=== PATIENT | female | born 1980 | race Caucasian/White ===

== ENCOUNTER 2017-08-11 17:53 | Emergency (ER) | payer OTHER ==
[~2017-08-11] VITALS: Ht 157.5 cm; Wt 75.3 kg
[~2017-08-11 17:53] MED LIST: ACCUNEB SO1.25 MG/1 INH; ACETAMINOPHEN-1 EAC1 PO; ADVAIR HFA115 MCG/21 INH; ALBUTEROL S5 MG/1 ML IH; ALBUTEROL2.5 MG/0.5 INH; AMITRIPTYLINE H50 M2; AMITRIPTYLINE H50 M4 PO; AMOXICILLIN875 MG PO; ARTIFICIAL TEAR15 M3 OPHTHALMIC; ATIVAN1 MG PO; AZITHROMYCIN 2250 MG PO; BACTRIM DS TAB1 EACH PO; BENADRYL25 MG PO; CEFDINIR300 MG PO; CLONAZEPAM 1 MG1 M1; CLONAZEPAM 1 MG1 M1 PO; COLACE100 MG PO; CYMBALTA60 MG PO; DARVOCET-N 1001 EACH PO; DEPAKOTE ER500 MG PO; DEPAKOTE500 MG PO; DILANTIN30 MG PO; DUONEB 2.5-0.5 M3 ML INH; FLEXERIL; FLEXERIL PO; GEODON80 MG; HALDOL 0.5 MG0.5 MG PO; HYDROCODON-ACE1 EAC5; IBUPROFEN 800800 M1 PO; IBUPROFEN 800800 MG PO; LEVAQUIN 500 M500 MG PO; LEVOTHYROXIN0.125 M1 PO; LEVOTHYROXINE0.05 MG; LEVOTHYROXINE0.05 MG PO; LEXAPRO 10 MG T10 MG PO; MEDROLDOSEPACK PO; MIRALAX17 GM PO; NAPROSYN500 MG PO; NORCO 5-325 TA1 EACH PO; OMEPRAZOLE 20 M20 MG PO; PERCOCET 10-321 EACH PO; PERCOCET 5-3251 EACH PO; PERCOCET PO; PREDNISONE 10 M10 M1; PREDNISONE 10 M10 MG PO; PREDNISONE 20 M20 M1 PO; PROAIR HFA8.5 GM IH; PROVENTIL HFA6.7 G1 INH; PROZAC 20 MG20 M1; ROBAXIN 750 MG750 M1 PO; ROBAXIN500 MG PO; TESSALON PERLE100 MG; TRAMADOL 50 MG50 MG PO; TRIAMCINOLONE 080 G3 TOP; VALIUM10 MG; VALIUM5 MG PO; VENTOLIN HFA 1818 GM INH; VENTOLIN HFA INH8 GM IH; VISTARIL 25 MG25 M1 PO; VITAMIN D 5050000 I1 PO; XANAX 0.5 MG0.5 MG PO; XANAX XR1 MG PO; XOPENEX HFA15 GM IH; ZOFRAN4 MG PO; ZPAK PO; ZYRTEC10 MG PO
[2017-08-11] MEDS ORDERED: VIMPAT100 MG PO (18:15)
[2017-08-11] MEDS ORDERED: CLEOCIN HCL150 MG PO (18:15)
[2017-08-11] MEDS ORDERED: STOOL SOFTENER100 MG PO (18:16)
[2017-08-11] MEDS ORDERED: MULTIVITAMINS1 EAC7 PO (18:16)
[2017-08-11] MEDS ORDERED: XANAX1 MG PO (18:16)
[2017-08-11 19:35] VITALS: BP 94/56
== END 2017-08-11 19:38 | disposition home or self-care (01) ==
LOC: M.ERS 17:53
DX: G89.18 Other acute postprocedural pain (principal); Z98.890 Other specified postprocedural states; F41.9 Anxiety disorder, unspecified; F43.10 Post-traumatic stress disorder, unspecified; F42.9 Obsessive-compulsive disorder, unspecified; Z88.8 Allergy status to other drugs, medicaments and biological substances; Z88.2 Allergy status to sulfonamides

== ENCOUNTER 2017-08-30 21:02 | Emergency (ER) | payer OTHER ==
[~2017-08-30] VITALS: Ht 157.5 cm; Wt 73.5 kg
[~2017-08-30 21:02] MED LIST changes: +CLEOCIN HCL150 MG PO; +MULTIVITAMINS1 EAC7 PO; +STOOL SOFTENER100 MG PO; +VIMPAT100 MG PO; +XANAX1 MG PO
[2017-08-30] MEDS ORDERED: FISH OIL 1,001000 M2 PO (21:09)
[2017-08-30] MEDS ORDERED: SOMA350 MG PO (21:09)
[2017-08-30] MEDS ORDERED: VITAMIN D1000 UNI1 PO (21:09)
[2017-08-30] MEDS ORDERED: VISTARIL 25 MG25 M1 PO (21:10)
[2017-08-30 21:57] VITALS: BP 111/64
== END 2017-08-30 21:57 | disposition home or self-care (01) ==
LOC: M.ERS 21:02
DX: M54.5 Low back pain (principal); F43.10 Post-traumatic stress disorder, unspecified; F41.9 Anxiety disorder, unspecified; Z85.3 Personal history of malignant neoplasm of breast; Z88.2 Allergy status to sulfonamides; Z88.1 Allergy status to other antibiotic agents; Z88.8 Allergy status to other drugs, medicaments and biological substances

== ENCOUNTER 2017-09-10 19:55 | Emergency (ER) | payer OTHER ==
[~2017-09-10] VITALS: Ht 157.5 cm; Wt 72.6 kg
[~2017-09-10 19:55] MED LIST changes: +FISH OIL 1,001000 M2 PO; +SOMA350 MG PO; +VITAMIN D1000 UNI1 PO
[2017-09-10] MEDS ORDERED: ZOFRAN ODT4 MG DISSOLVE (20:06)
[2017-09-10 20:26] LABS: ABSOLUTE EOSINOPHILS 0.4 thou/uL (0.0-0.7); ABSOLUTE LYMPHOCYTES 2.9 thou/uL (0.8-5.3); ABSOLUTE MONOCYTES 0.6 thou/uL (0.0-1.2); ABSOLUTE NEUTROPHILS 4.3 thou/uL (1.6-8.1); BASOPHILS 0.6 %; EOSINOPHILS 4.4 %; HEMATOCRIT 38.3 % (37.0-47.0); HEMOGLOBIN 12.8 gm/dL (12.0-15.0); LYMPHOCYTES 35.4 %; MCH 31.3 pg (26.0-34.0); MCHC 33.4 g/dL (28.0-37.0); MCV 93.8 fL (80.0-100.0); MONOCYTES 7.2 %; MPV 8.7 fl. (7.2-11.1); NUCLEATED RBCS 0 /100WBC; PLATELET COUNT* 273 thou/uL (150-400); POLYS 52.4 %; RBC 4.08 mil/uL (4.20-5.00); RDW-CV 15.5 % (10.5-14.5); WBC 8.2 thou/uL (4.0-11.0)
[2017-09-10 20:37] LABS: URINE BILIRUBIN NEGATIVE (Negative); URINE BLOOD NEGATIVE (Negative); URINE CLARITY CLEAR; URINE COLOR YELLOW; URINE GLUCOSE-RANDOM NEGATIVE (Negative); URINE KETONES NEGATIVE (Negative); URINE LEUKOCYTES-REFLEX NEGATIVE (Negative); URINE NITRITE-REFLEX NEGATIVE (Negative); URINE PROTEIN NEGATIVE (Negative); URINE SPECIFIC GRAVITY 1.015 (1.005-1.030); URINE UROBILINOGEN 0.2 E.U./dl (0.2-1.0)
[2017-09-10 20:38] LABS: CALCIUM 8.4 mg/dL (8.5-10.1); CREATININE 0.7 mg/dL (0.6-1.3); POTASSIUM 3.9 mmol/L (3.5-5.1)
[2017-09-10 20:43] LABS: TOTAL BILIRUBIN 0.1 mg/dL (<0.1-1.0); TOTAL PROTEIN 6.2 g/dL (6.4-8.2)
[2017-09-10] MEDS ORDERED: ZOFRAN ODT4 MG PO (20:55)
[2017-09-10] MEDS ORDERED: ACETAMINOPHEN-1 EAC1 PO (20:55)
[2017-09-10] MEDS ORDERED: LOPERAMIDE 2 MG2 M1 PO (20:55)
[2017-09-10 21:46] VITALS: BP 92/54
== END 2017-09-10 21:48 | disposition home or self-care (01) ==
LOC: M.ERS 19:55
PROVIDERS: Physician Assistant
DX: R11.2 Nausea with vomiting, unspecified (principal); R19.7 Diarrhea, unspecified; F41.9 Anxiety disorder, unspecified; F43.10 Post-traumatic stress disorder, unspecified; F42.9 Obsessive-compulsive disorder, unspecified; Z88.8 Allergy status to other drugs, medicaments and biological substances; Z98.890 Other specified postprocedural states; Z85.3 Personal history of malignant neoplasm of breast; Z88.1 Allergy status to other antibiotic agents; Z88.2 Allergy status to sulfonamides; Z88.6 Allergy status to analgesic agent

== ENCOUNTER 2017-09-14 22:17 | Inpatient (IN) | payer OTHER ==
[~2017-09-14] VITALS: Ht 157.5 cm; Wt 70.3 kg
--- NOTE | ~2017-09-14 | EKG ---
[place] [address] ELECTROCARDIOGRAM REPORT Name: YOLI OAKLEY Room: [address] ADM IN .R.#: [id number] Admission: 09/15/17 Attend Phys: Salomon Cohn Discharge: Date of : 84 Report #: [id number] THIS REPORT FOR: //name// [facility] Test Date: 2017-09-16 Test Time: 08:43:12 Pat Name: YOLI TOMLINEY Department: Room: [address] Gender: F Warper Tender: ALBER : 1980 Requested By: Floyd Tate Order Number: [id number] Reading MD: Measurements Intervals [place] Rate: 52 P: 40 AR: 145 QRS: 19 QRSD: 126 T: 17 QT: 453 QTc: 422 Interpretive Statements Sinus rhythm Nonspecific intraventricular conduction delay No previous ECG available for comparison [email or web address] By: [id number] Epiphany Epiphany, /EPI
--- NOTE | ~2017-09-14 | PROC ---
[address] [address] PROCEDURE REPORT Name: YOLI OAKLEY Room: [address]#: [id number] Admission: 09/15/17 Attend Phys: Salomon Cohn Discharge: 09/19/17 Date of : 84 Report #: [id number] THIS REPORT FOR: //name// For GI report, please see the Provation report in Perceptive 7 content. By: 0945Medical Records Staff BENJAMIN /BERTA
[~2017-09-14 22:17] MED LIST changes: +LOPERAMIDE 2 MG2 M1 PO; +ZOFRAN ODT4 MG DISSOLVE; +ZOFRAN ODT4 MG PO
[2017-09-14 22:24] VITALS: BP 102/70
[2017-09-14 23:15] LABS: ABSOLUTE BASOPHILS 0.1 thou/uL (0.0-0.2); ABSOLUTE EOSINOPHILS 0.4 thou/uL (0.0-0.7); ABSOLUTE LYMPHOCYTES 3.3 thou/uL (0.8-5.3); ABSOLUTE MONOCYTES 0.8 thou/uL (0.0-1.2); ABSOLUTE NEUTROPHILS 4.8 thou/uL (1.6-8.1); BASOPHILS 0.7 %; HEMATOCRIT 34.5 % (37.0-47.0); HEMOGLOBIN 11.6 gm/dL (12.0-15.0); LYMPHOCYTES 35.4 %; MCH 31.3 pg (26.0-34.0); MCHC 33.5 g/dL (28.0-37.0); MCV 93.2 fL (80.0-100.0); MONOCYTES 8.4 %; MPV 8.9 fl. (7.2-11.1); NUCLEATED RBCS 0 /100WBC; PLATELET COUNT* 237 thou/uL (150-400); POLYS 51.5 %; RDW-CV 15.4 % (10.5-14.5); WBC 9.4 thou/uL (4.0-11.0)
[2017-09-14 23:29] LABS: URINE BILIRUBIN NEGATIVE (Negative); URINE BLOOD NEGATIVE (Negative); URINE CLARITY CLEAR; URINE COLOR YELLOW; URINE GLUCOSE-RANDOM NEGATIVE (Negative); URINE KETONES NEGATIVE (Negative); URINE LEUKOCYTES-REFLEX NEGATIVE (Negative); URINE NITRITE-REFLEX NEGATIVE (Negative); URINE PROTEIN NEGATIVE (Negative); URINE SPECIFIC GRAVITY 1.025 (1.005-1.030); URINE UROBILINOGEN 0.2 E.U./dl (0.2-1.0)
[2017-09-14 23:37] LABS: AMP/METHAMP Negative (Negative); BARBITURATES POSITIVE (Negative); BENZODIAZEPINES POSITIVE (Negative); COCAINE Negative (Negative); METHADONE Negative (Negative); OPIATES Negative (Negative); PCP Negative (Negative); THC POSITIVE (Negative)
[2017-09-14 23:56] LABS: CALCIUM 8.1 mg/dL (8.5-10.1); CREATININE 0.8 mg/dL (0.6-1.3); POTASSIUM 4.1 mmol/L (3.5-5.1)
[2017-09-15 00:01] LABS: ALBUMIN 2.7 g/dL (3.4-5.0); TOTAL BILIRUBIN 0.1 mg/dL (<0.1-1.0); TOTAL PROTEIN 5.5 g/dL (6.4-8.2)
[2017-09-15 04:04] VITALS: BP 105/59
[2017-09-15 04:42] VITALS: BP 89/47
--- NOTE | 2017-09-15 05:27 | NUR ---
PATIENT ARRIVED FROM ER ALERT AND ORIENTED. ORIENTED TO ROOM AND BED CONTROLS. ASSESSMENT CHARTED. CALL LIGHT WITHIN REACH. NPO AT THIS TIME.
--- NOTE | 2017-09-15 06:05 | NUR ---
ALERT AND ORIENTED X4. UP AD LOURDES IN ROOM. IV PAIN AND NAUSEA MEDICATION GIVEN AND PATIENT NOW RESTING QUIETLY IN BED. REMAINS NPO AT THIS TIME. IVF INFUSING WITHOUT DIFFICULTY. CALL LIGHT WITHIN REACH.
[2017-09-15 08:00] VITALS: BP 91/46
--- NOTE | 2017-09-15 11:11 | NUR ---
Pt is A&O. Resides at home with her son. Independent with ADLs, no DME. Supportive family that is available to assist as needed. No hx of HH or SNF. Goal is to return home at dc, no needs anticipated. Pt stated that she believes that she is suppose to have her gallbladder removed, hopefully today. Following for disposition.
[2017-09-15 16:03] VITALS: BP 101/61
--- NOTE | 2017-09-15 18:11 | NUR ---
PATIENT ALERT AND ORIENTED X 4. VITAL SIGNS STABLE ON ROOM AIR. AFEBRILE. PERRLA. UP AD LOURDES AND AMBULATING IN ROOM AND HALLWAY. IV PATENT WITH FLUIDS INFUSING. PAIN AND NAUSEA BEING MANAGED WITH IV MEDICATIONS. PATIENT REFUSES SCD'S. EDUCATED ON THE IMPORTANCE. TOLERATING CLEAR LIQUID DIET AT THIS TIME. NPO AFTER MIDNIGHT. SURGERY SCHEDULED FOR THE AM. HOURLY ROUNDS MAINTAINED THROUGHOUT THE SHIFT. CALL LIGHT WITHIN REACH. NURSING WILL CONTINUE TO MONITOR.
[2017-09-15 20:30] VITALS: BP 87/52
[2017-09-16] VITALS (9 sets, daily range): BP systolic 80–114; BP diastolic 32–65
--- NOTE | 2017-09-16 03:39 | NUR ---
ORDERED FLUID BOLUS COMPLETE. BLOOD PRESSURE CONTINUES TO BE LOW. CONTACTED PHYSICIAN. ORDERS TO HOLD PAIN MEDICATIONS UNTIL SYSTOLIC PRESSURE IS ABOVE 85.
--- NOTE | 2017-09-16 05:02 | NUR ---
PATIENT REMAINS ALERT AND ORIENTED X4 THROUGHOUT SHIFT. PHYSICIAN HAS BEEN CONTACTED FOR LOW BLOOD PRESSURE. ORDERS GIVEN. OXYGEN STABLE ON ROOM AIR. IV PATENT IN THE RIGHT HAND INFUSING AT 150 ML/HR. PAIN MANAGED WITH IV MEDICATION PER ORDERS. NAUSEA MANAGED WITH IV MEDICATIONS ORDERS. MAINTAINED NPO STATUS SINCE MIDNIGHT. IV ANTIBIOTICS GIVE PER ORDERS. VISITOR IN ROOM THROUGHOUT NIGHT. ORDERS GIVEN TO HOLD PAIN MEDICATION UNTIL SYSTOLIC PRESSURE ABOVE 85. PATIENT STATES HER BLOOD PRESSURE RUNS LOW DUE TO HISTORY OF SICK SINUS SYNDROME. TRANSFERS AD LOURDES TO THE RESTROOM. HOURLY ROUNDING COMPLETE. CALL LIGHT WITHIN REACH. NURSING WILL CONTINUE TO MONITOR.
--- NOTE | 2017-09-16 11:25 | NUR ---
0715-ASSUMED CARE OF PT, PT HAS HX OF SEIZURE DISORDER-PRECAUTIONS IN PLACE PT IN PAIN BUT HAS HAD LOW BP OVER PREVIOUS SHIFT, PHYSICIAN ORDER NOT TO PROVIDE PAIN MEDICATIONS IF SBP UNDER 85. PT C/O NAUSEA AT THIS TIME, WILL PROVIDE WITH ANTI-NAUSEA MEDICATIONS. 0820-SPOKE WITH DR RAMEY REGARDING CONCERNS ABOUT LOW BP PRIOR TO SURGERY AND PT HX OF SICK SINUS SYNDROME, WONDERING IF PT SHOULD BE ON TELEMETRY. 0853-PT LEFT UNIT FOR SURGERY AT THIS TIME. 1050-DR CORREA GAVE ORDER FOR 1L NS OVER 90 MINS AND THAT THE PT CAN HAVE FENTANYL LONG BP REMAIN STABLE. 1100-SPOKE WITH DR RIDER AND HE STATED THAT THE PT TOLERATED SURGERY WELL, DID NOT NEED ANY PRESSORS AND BP HAS STABILIZED AT THIS TIME.
[2017-09-17 02:18] VITALS: BP 101/63
[2017-09-17 04:29] VITALS: BP 92/51
--- NOTE | 2017-09-17 05:05 | NUR ---
PATIENT REMAINS ALERT AND ORIENTED X4 THROUGHOUT SHIFT. VITAL SIGNS STABLE ON ROOM AIR. IV PATENT IN THE RIGHT HAND INFUSING AT 150 ML/HR PER ORDERS. PAIN MANAGED WITH PO MEDICATION AND IV MEDICATION FOR BREAKTHROUGH PAIN. BLOOD PRESSURE CLOSELY MONITORED PRIOR TO GIVING PAIN MEDICATION. NAUSEA MANAGED WITH IV MEDICATION. TRANSFERS AD LOURDES IN ROOM AND IN HALLWAY. HAS BEEN WALKING AROUND UNIT FREQUENTLY. REQUESTED ABDOMINAL BINDER, PHYSICIAN CONTACTED AND ORDERS RECEIVED. VISITOR IN ROOM. PATIENT DECLINES WEARING SCD'S. REPOSITIONING SELF. HOURLY ROUNDING COMPLETE. CALL LIGHT WITHIN REACH. NURSING WILL CONTINUE TO MONITOR.
[2017-09-17 07:54] VITALS: BP 102/63
[2017-09-17] MEDS ORDERED: ZOFRAN ODT4 MG PO (07:54)
--- NOTE | 2017-09-17 09:45 | EKG ---
[place] [address] ELECTROCARDIOGRAM REPORT Name: YOLI OAKLEY Room: [address] ADM IN .R.#: [id number] Admission: 09/15/17 Attend Phys: Salomon Cohn Discharge: Date of : 84 Report #: [id number] THIS REPORT FOR: //name// [facility] Test Date: 2017-09-16 Test Time: 08:43:12 Pat Name: YOLI OAKLEY Department: Room: [address] Gender: F Carry All Driver: ALBER : 1980 Requested By: Reji Wenistein Order Number: [id number] MD: Pasha Alas Measurements Intervals [place] Rate: 52 P: 40 [place]: 145 QRS: 19 QRSD: 126 T: 17 QT: 453 QTc: 422 Interpretive Statements Sinus bradycardia Compared to ECG 03/27/2014 19:20:14 Sinus arrhythmia no longer present Electronically Signed On 09-17-2017 9:44:56 CDT by Pasha Alas [email or web address] <ELECTRONICALLY SIGNED> By: Pasha Alas MD, [facility] 09/17/17 0944 2 2 Pasha Alas MD, [facility] /EPI
[2017-09-17 15:48] VITALS: BP 93/57
--- NOTE | 2017-09-17 18:48 | NUR ---
0754-ASSUMED CARE OF PT. PT RESTING COMFORTABLY IN BED AT THIS TIME. 0650-PT NOT TOLERATING REGULAR OR CLEAR LIQUID DIET THIS SHIFT. PT EXPERIENCING NAUSEA WITH VOMITTING AND ANH VIERANG THIS SHIFT. PT NEEDING IV ZOFRAN AND IV FENTANYL THIS SHIFT FOR NAUSEA AND PAIN MANAGEMENT. TEAM AWARE. DR MOORE GAVE TELEPHONE ORDER AT 0930 FOR SECOND DOSE OF ZOFRAN IF NEEDED UP TO 8MG BUT STATED THAT NO PHENERGAN WAS TO BE USED. SPOKE WITH DR RAMEY REGARDING PT CONTINUED NAUSEA WHEN HE WAS ROUNDING AND HE STATED THAT IF SHE CONTINUED HAVING COMPLICATIONS THIS EVENING TO LET THE TEAM KNOW SO THAT THEY COULD START IV FLUIDS. NOTIFIED DR BRADSHAW REGARDING PT CONTINUED NAUSEA AND VOMITTING AT 1730 AND HE GAVE TELEPHONE ORDERS TO MAKE PT NPO AND START NS AT 100 AT THIS TIME. HE ALSO STATED TO DC ZOFRAN 4MG IV AND 4MG ZOFRAN SL AT THIS TIME AND CHANGE THE ORDER TO ZOFRAN 4-8MG IV Q4 AT THIS TIME. ORDERS PLACED. IV FLUIDS STARTED AND ANOTHER DOSE OF FENTANYL PROVIDED. PT RESTING AT THIS TIME.
[2017-09-17 19:45] VITALS: BP 90/52
[2017-09-18 04:02] VITALS: BP 98/64
--- NOTE | 2017-09-18 05:10 | NUR ---
PATIENT HAS REMAINED ALERT AND ORIENTED X 4 THROUGHOUT THE SHIFT. MIN NAUSEA AT SHIFT START THAT RESOLVED WITH A DOSE ZOFRAN. NO EMESIS. CONTINUES TO HAVE PAIN REQUIRING IV PAIN MEDICATION. ADDITIONAL ORDERS WERE RECEIVED AT HS WELL. PATIENT UP TO BR SBA, VOIDING ADEQUATELY. STATES HAS PASSED MINAMAL GAS. NPO STATUS MAINTAINED. IVF'S PER ORDERS. VITAL SIGNS STABLE. CONTINUE TO MONITOR.
[2017-09-18] MEDS ORDERED: PROMS25 WY RECTAL (07:37)
[2017-09-18 07:45] VITALS: BP 97/60
[2017-09-18 11:28] LABS: HEMATOCRIT 31.2 % (37.0-47.0); HEMOGLOBIN 10.5 gm/dL (12.0-15.0); MCHC 33.8 g/dL (28.0-37.0); MCV 94.6 fL (80.0-100.0); MPV 8.7 fl. (7.2-11.1); RBC 3.3 mil/uL (4.20-5.00); RDW-CV 14.8 % (10.5-14.5)
[2017-09-18 11:38] VITALS: BP 106/64
[2017-09-18 11:51] LABS: ALBUMIN 2.4 g/dL (3.4-5.0); CALCIUM 8.3 mg/dL (8.5-10.1); CREATININE 0.6 mg/dL (0.6-1.3); POTASSIUM 3.8 mmol/L (3.5-5.1); TOTAL BILIRUBIN 0.3 mg/dL (<0.1-1.0)
[2017-09-18 12:09] VITALS: BP 122/56
--- NOTE | 2017-09-18 14:00 | NUR ---
HAD EGD TODAY FOR CONTINUED NAUSEA/VOMITING POST LAP CAROLINE. IT SHOWED ESOPHAGITIS. WILL GO HOME AT DISCHARGE AND HAVE REPEAT EGD IN 2 MONTHS. ON CLEAR LIQUIDS TODAY. HOPES TO ADVANCE DIET TOMORROW AND DISCHARGE HOME WITH NO NEEDS.
[2017-09-18 15:28] VITALS: BP 110/58
--- NOTE | 2017-09-18 17:40 | NUR ---
ALERT AND ORIENTED X4. UP AD LOURDES IN ROOM. IV IS PATENT AND INFUSING. PAIN BEING MANAGED WITH PO AND IV PAIN MEDICATION. NAUSEA BEING MANAGED WITH IV AND PO NAUSEA MEDICATION. ON CLEAR LIQUID DIET AT THIS TIME, NOT TOLERATING IT WELL. EGD DONE TODAY, NEW ORDERS RECIEVED. PATIENT IS OKAY TO DC ONCE TOLERATING FULL LIQUID DIET, WHICH PATIENT IS NOT AT THIS TIME. VSS ON ROOM AIR. HOURLY ROUNDS HAVE BEEN MAINTAINED THROUGHOUT SHIFT. CALL LIGHT IS WITHIN REACH. NURSING WILL CONTINUE TO MONITOR.
[2017-09-18 20:00] VITALS: BP 96/43
[2017-09-19 04:00] VITALS: BP 85/49
[2017-09-19 04:50] VITALS: BP 95/52
--- NOTE | 2017-09-19 05:31 | NUR ---
PATIENT HAS REMAINED ALERT AND ORIENTED X 4 THROUGHOUT THE SHIFT AND RESTING QUIETLY ON HOURLY ROUNDS. IMPROVEMENT IN NAUSEA. NO EMESIS. TOLERATING ORAL MEDICATIONS ANTI-EMTICS PROVIDED X 2 WITH PAIN MEDS. IMPROVED PAIN CONTROL WELL THIS SHIFT. MEDICATIONS PROVIDED X 3 TO GOOD EFFECT. UP IN ROOM INDEPENDENTLY WITH STEADY GAIT. DRESSINGS TO ABDOMINAL LAPS SITES CLEAN AND DRY. IVF'S PER ORDERS. PATIENT CAUGHT IV LINE ON BEDDING AT PULLED OUT EARLY EVENING. REPLACED LEFT FOREARM BY CARE COORDINATION MANAGER. VITAL SIGNS STABLE WITH LOW BP WHEN PATIENT NEAR SLEEP. NO DIZZINESS. CONTINUE TO MONITOR.
[2017-09-19 08:00] VITALS: BP 93/55
[2017-09-19 12:03] VITALS: BP 93/55
[2017-09-19] MEDS ORDERED: OXYCONTIN10 M1 PO (12:20)
[2017-09-19] MEDS ORDERED: HYDROCODONE-AP1 EAC6 PO (12:21)
--- NOTE | 2017-09-19 15:09 | NUR ---
PATIENT CLEARED FOR DISCHARGE BY DR. MOORE AND DR. REILLY. PATIENT TOLERATING CLEAR LIQUID DIET. ALERT AND ORIENTED X 4. VITAL SIGNS STABLE ON ROOM AIR. UP AD LOURDES IN ROOM AND AMBULATING IN HALLWAY. PAIN BEING MANAGED IN THE HOSPITAL WITH PO TYLENOL, OXYCODONE, AND TRAMADOL PER DR. MOORE. NAUSEA BEING MANAGED WITH PO MEDICATION. IV DISCONTINUED. SCRIPT FOR NORCO GIVEN, PER DR. REILLY, TO HELP WITH SURGICAL PAIN AT HOME. SCRIPTS FOR ZOFRAN AND PHENERGAN ALSO GIVEN, PER DR. MOORE. DISCHARGE INSTRUCTIONS AND MEDICATION INFORMATION GIVEN TO PATIENT. LEFT WITH ALL BELONGINGS. PATIENT LEFT WITH SIGNIFICANT OTHER VIA CAR AT 1500.
[2017-09-19 15:16] VITALS: BP 93/55
--- NOTE | 2017-09-19 17:50 | NUR ---
PATIENT WAS DISCHARGED EARLIER TODAY AT 1500 WITH A SCRIPT FOR NORCO 5/325. PATIENT HAD TROUBLE FINDING A PLACE TO FILL THE SCRIPT. STATED ALL OF THE PHARMACIES THAT SHE WENT TO WERE OUT OF NORCO . CALLED SEVERAL LOCAL PHARMACIES AND THEY WERE ALL OUT. INSTRUCTED PATIENT TO COME BACK UP HERE TO GIVE HER A SCRIPT FOR OXYCODONE 5MG, 0.5-1 TAB EVERY 4 HOURS, QUANITY 10. PATIENT RETURNED THE NORCO 5/325 SCRIPT (FROM DR. RAMEY/DR. REILLY) AND GAVE HER THE OXYCODONE SCRIPT (FROM DR. MOORE). PATIENT CALLED THE UNIT REPEATEDLY AFTER DISCHARGE STATING HAVING TROUBLE GETTING FIRST SCRIPT FILLED, AND SECOND SCRIPT. PATIENT ASKING NURSING STAFF TO CALL PHARMACY AND VERIFY LEGITIMACY OF SECOND SCRIPT SO SHE CAN GET IT FILLED. PATIENT GAVE STAFF THE NUMBER FOR [facility] ON [address], STAFF CALLED AND SPOKE TO ONI IN THE PHARMACY, HE HAD NO IDEA WHY SHE WAS HAVING SO MUCH TROUBLE AND STATED THAT HE WOULD TAKE CARE OF IT WHEN SHE GOT THERE.
--- NOTE | 2017-09-25 16:07 | OP ---
[facility] [address] [place] [address] OPERATIVE REPORT Name: YOLI OAKLEY Room: [address]#: [id number] Admission: 09/15/17 Attend Phys: Salomon Cohn Discharge: 09/19/17 Date of : 84 Report #: [id number] THIS REPORT FOR: //name// CC: PORFIRIO MUHAMMAD Physician staff Primary Care Doctor Cuong Velazco DICTATED BY: Huy Sims DO DATE OF SERVICE: 09/16/2017 PREOPERATIVE DIAGNOSIS: Acute cholecystitis with cholelithiasis. POSTOPERATIVE DIAGNOSES: Acute cholecystitis with cholelithiasis and hydrops of the gallbladder. SURGEON: Jesus Casey DO CO-SURGEON: Torres Sims DO, PGY4. OPERATIONS PERFORMED: Laparoscopic cholecystectomy with aspiration of the gallbladder. ANESTHESIA: General and local. ESTIMATED BLOOD LOSS: 20 mL. SPECIMENS: Gallbladder and contents. COMPLICATIONS: None. DISPOSITION: PACU, then returned to her room for recovery and then likely discharged home later today. HISTORY OF PRESENT ILLNESS: The patient is a pleasant 37-year-old female who presented to the hospital on Sunday night with complaint of upper abdominal pain, nausea and vomiting. While she was in the ER, the patient had lab work done as well as a CAT scan, which showed notable cholelithiasis and a rather distended gallbladder. The patient was admitted for further observation and General Surgery consult was placed. We saw the patient shortly after admission and she was continued to have right upper quadrant abdominal pain. Her CAT scan was reviewed and an abdominal ultrasound was ordered. The ultrasound showed that the patient did have a distended gallbladder with notable cholelithiasis. We started the patient on IV antibiotics and then consented her for a laparoscopic cholecystectomy. We [place] [address] OPERATIVE REPORT Name: YOLI OAKLEY Room: [address]#: [id number] Admission: 09/15/17 Attend Phys: Salomon Cohn Discharge: 09/19/17 Date of : 84 Report #: [id number] length with the patient and her family. All risks, benefits, and complications also discussed to include but not limited to infection, bleeding, hernias at incision sites, chronic pain and numbness at incision sites, injury to surrounding structures such as common bile duct, small bowel, stomach, anesthesia risks and other common complications associated with this procedure. The patient voiced complete understanding and wished to proceed. DESCRIPTION OF PROCEDURE: After the appropriate consents were obtained, the patient was taken to the operating room, laid in supine position. She had SCDs placed on her bilateral lower extremities and safety strap placed across her lap. All lines were placed by Anesthesia. The patient was already receiving IV antibiotics prior to surgery. She had a foot plate placed at the end of her bed and her arm was placed out at her sides. Anesthesiologist then sedated and intubated her without difficulty. The patient's abdomen was then prepped and draped in a standard sterile fashion. A timeout was performed to correctly identify the patient and procedure. We started with a supraumbilical incision, which was made at approximately 9:32 a.m. We dissected down through the subcutaneous tissue using electrocautery until we encountered the anterior abdominal wall fascia. Once the fascia was encountered, it was incised using electrocautery. It was grasped between 2 Hossein clamps and elevated. Once the fascia was extended some, we used a hemostat to bluntly enter the abdominal cavity and it was noted that the patient had a notable lax to her peritoneum. The peritoneum was then grasped between 2 hemostats and incised using Metzenbaum scissors. Once the peritoneum was incised, a finger was used to sweep the intra-abdominal cavity to ensure there were no josias-incisional adhesions and none were present. We then placed 2 xtskyz-pa-rcwod 0 Vicryl sutures at the inferior and superior aspect of the incision on the fascia. Once the sutures were in place, we introduced our 5 mm Arleen trocar and insufflated the balloon. The Arleen trocar was secured using these previously placed 0 Vicryl sutures. We introduced the camera into the abdomen after it was insufflated to 15 mmHg. Initial inspection of the anterior abdominal wall organs showed that the patient had a significantly distended gallbladder as well as what appeared to be an ovarian cyst on the left side of her abdomen and her pelvis. Otherwise, there were no obvious abnormalities that were visualized. We then placed our 5 mm trocar in the subxiphoid position. This was placed under direct visualization. Using a blunt grasper, we were able to retract the liver and elevate the gallbladder and to place our other 2 right lateral abdominal trocars. These were both 5 mm trocars as well and these were both placed under direct visualization. The gallbladder was significantly distended and was unable to be grasped using a locking grasper, so we decided to aspirate the gallbladder. We introduced the aspiration needle into the abdomen and punctured the gallbladder and aspirated the fluid, it was very clear in nature and it was obviously the patient had hydrops of the gallbladder. Once the gallbladder was decompressed, it was easily grasped. The gallbladder was then elevated and retracted cephalad and anteriorly until we were able to visualize the Vidal's pouch. The peritoneum overlying Vidal's pouch was then incised using [facility] [address] [place] [address] OPERATIVE REPORT Name: CELEYOLI Doug Room: [address] IN [facility].#: [id number] Admission: 09/15/17 Attend Phys: Salomon Cohn Discharge: 09/19/17 Date of : 84 Report #: [id number] electrocautery. We extended this medially and laterally and then used blunt dissection to identify our duct and our artery. The duct was coursing directly into the gallbladder as well as the artery, which was sitting just medial and superiorly to the duct. Once our duct and artery were completely dissected using blunt dissection with a [place], we were able to visualize our critical view. We visualized two and only two structures coursing directly into the gallbladder, consistent with our cystic duct and cystic artery and we also visualized the inferior edge of the liver. We then decided to place our clips. We placed a single Weck clip on the proximal end of the artery and the distal end of the artery and two Weck clips on the proximal end of the duct and one clip on the distal end of the duct. Once our clips were in place, we incised the duct and artery using laparoscopic scissors. There was an obvious lumen to the cystic artery that was nonbleeding and there was an obvious lumen to the cystic duct that did not show any oozing either. Once these structures were completely transected, we took the remainder of the gallbladder off the liver bed using electrocautery. There was no bleeding that we encountered during the dissection off the liver bed and once it was completely removed, we were able to place it within the EndoCatch pouch. We turned our attention back to our clips to reinspect them and once again there was no oozing or bleeding from the cystic duct or the cystic artery. We placed the gallbladder within the EndoCatch pouch and the patient was allowed to return to the neutral position. We then removed our trocars under direct visualization. There was no bleeding from any of the trocar sites. The patient's abdomen was allowed to desufflate and we removed the gallbladder from the supraumbilical incision. We used our previously placed 0 Vicryl sutures in the fascia to elevate the fascia and we placed two more muwxhf-wy-lqodt sutures within the fascia to reapproximate it. There was good approximation of the fascia at the end of the procedure and we injected the fascia using 0.5% Marcaine. We then closed each incision site using a 4-0 Monocryl suture. The supraumbilical site was closed using a running subcuticular stitch of the same 4-0 Monocryl. Each of the trocar sites were closed using 4-0 Monocryl in inverted interrupted fashion. Each incision site was injected with 0.5% Marcaine for local anesthesia. The patient's abdomen was then cleaned and dried adequately. Mastisol, Steri-Strips and a sterile Tegaderm and Op-Site were applied to each of the incisions. We then put gauze and tape over each incision to add as pressure dressings. The patient was then allowed to awaken in the operating room and was subsequently extubated. All counts were correct x 2 at the end of this procedure. Dr. Casey was present and scrubbed for the entirety of this procedure. The patient will be allowed to return to the PACU and then subsequently brought back to her room for further observation. She is able to tolerate a diet and her pain is under control. She would likely be discharged home later today. <ELECTRONICALLY SIGNED> By: Jesus Casey DO 09/25/17 1607 1043 [id number] Casey DO /tammie
--- NOTE | 2017-10-02 16:59 | CON ---
[address] [address] CONSULTATION Name: YOLI OAKLEY Room: [address] IN .R.#: [id number] Admission: 09/15/17 Attend Phys: Salomon Cohn Discharge: 09/19/17 Date of : 84 Report #: [id number] THIS REPORT FOR: //name// CC: MAE Ortiz DO Physician staff Cuong Velazco DICTATED BY: Gina Juarez [facility] DATE OF SERVICE: 09/18/2017 PRIMARY CARE PHYSICIAN: Dr. Mae Ortiz. Please note at the time of this dictation, the patient was seen and physically examined by myself. REASON FOR CONSULTATION: Recurrent nausea and vomiting post-cholecystectomy. HISTORY OF PRESENT ILLNESS: This 37-year-old female who initially presented to the Emergency Room on September 14 with abdominal pain and nausea. She rated her pain as 7/10. She states she has had some similar pain off and on before. She did have an MRI done on September 03 that said that she had gallstones that indicated that she had a 1.5-cm stone in her gallbladder neck at that time. She underwent a laparoscopic cholecystectomy on the and had been doing relatively well; however, she has not been able to advance her diet secondary to nausea and vomiting ____ home yesterday and she was unable to keep anything down at that time. She denies any NSAID use and has not taken any since she had her gastric sleeve surgery last year. ALLERGIES: AMBIEN, SEROQUEL, BACTRIM, TRAMADOL, HALDOL, KEFLEX AND PROZAC. MEDICATIONS: From home include Vimpat, multivitamin, stool softener, Soma, vitamin D, fish oil and Vistaril. PAST MEDICAL HISTORY: History of breast cancer on the left, severe anxiety, seizure disorder, PTSD, OCD and a history of sick sinus syndrome. PAST SURGICAL HISTORY: Bilateral carpal tunnel. She has had C-sections, pinning of her left hand, fractured left ankle. She had radiation to her left breast in 2004, gastric bypass done with the sleeve in July 2016. FAMILY HISTORY: Negative for any GI or female cancers. SOCIAL HISTORY: Alcohol socially. Past history of illegal drug use and quit [place] [address] CONSULTATION Name: YOLI OAKLEY Room: [address]#: [id number] Admission: 09/15/17 Attend Phys: Salomon Cohn Discharge: 09/19/17 Date of : 84 Report #: [id number] REVIEW OF SYSTEMS: A 12-point review of systems is essentially negative except what is mentioned in the HPI. PHYSICAL EXAMINATION: VITAL SIGNS: Temperature 36.8, pulse 63, respirations 14, blood pressure 97/60. HEART: Regular rate and rhythm. LUNGS: Clear. ABDOMEN: Soft, positive bowel sounds in all 4 quadrants with some generalized tenderness noted over the incision sites. LABORATORY DATA: Hemoglobin 11.6, hematocrit 34.5, white count is 9.4, platelets 237. Sodium 140, potassium 4.1, chloride 108, CO2 of 26, BUN is 15, creatinine 0.8, GFR is 82 and glucose is 86. IMPRESSION: 1. Nausea and vomiting. 2. Gastroesophageal reflux disease. 3. Recent laparoscopic cholecystectomy. 4. History of breast cancer 2004, radiation. PLAN: 1. EGD today with Dr. Mena. 2. Repeat CBC and CMP. 3. Further recommendations to be made once the procedure has been performed. Thank you for allowing us to participate in this patient's care. Please do not hesitate to call with any questions in regard to this consult. I have personally seen and examined the patient and reviewed labs and imaging. The patient with history of gastric sleeve surgery a year ago who recently has had a cholecystectomy. She reports that she has been persistently vomiting since her surgery. She admits that she is receiving pain meds every 2 hours. Her vomiting may be secondary to the pain meds and the fact that she has had history of gastric sleeve. We will perform an upper endoscopy to assure that there is no gastric outlet obstruction. If this was negative, I will consider to put her on a motility agent. We will make further recommendation when her upper endoscopy is complete. <ELECTRONICALLY SIGNED> By: Michael Mena MD 10/02/17 1659 1058 [id number] Mena MD /nt
--- NOTE | 2017-10-11 17:11 | PATH ---
[address] [address] PATHOLOGY RPT PROCEDURE Name: YOLI SANTAMARIA Room: [address] IN ..#: [id number] Admission: 09/15/17 Date of : 84 Discharge: 09/19/17 Report #: [id number] Path Case #: [id number] [facility] Accession Number: [id number] . 01 Material submitted: . GALLBLADDER . 01 Clinical history: . Cholelithiasis . 02 Diagnosis: Gallbladder: - Chronic cholecystitis with mural fibrosis and cholelithiasis. . (JUDITH:mml; 09/18/2017) [facility]/09/18/2017 . 02 Electronically signed: . Charlie Murguia MD, Pathologist NPI- [id number] . 01 Gross description: . The specimen is received in formalin, labeled "Yoli Santamaria, gallbladder". Received is an intact gallbladder measuring 8.9 x 4.2 x 1.8 cm in greatest dimensions displaying pink-tanner serosal surfaces. Opening the gallbladder reveals a trabeculated, pale marcos mucosa with a gallbladder wall thickness of 0.3 cm. Calculi are present displaying a light brown and multifaceted appearance, and no masses or lesions are noted grossly. [employer] sections from the cystic neck, body, and fundus of the gallbladder are submitted in cassette A1. (CAA; 09/17/2017) QAC/QAC . 02 Pathologist provided ICD-10: K80.10 . 02 CPT . 742709 Performed at: 01 [facility] [address] [place] [address] [address], [place], [place] [id number] MD Kofi Nix MD Phone: [phone] Performed at: 02 [facility] [address], [place], [place] [id number] MD Charlie Murguia MD Phone: [phone]
--- NOTE | 2017-10-12 07:06 | PATH ---
[address] [address] PATHOLOGY RPT PROCEDURE Name: YOLI SANTAMARIA Room: [address] IN .R.#: [id number] Admission: 09/15/17 Date of : 84 Discharge: 09/19/17 Report #: [id number] Path Case #: [id number] [facility] Accession Number: [id number] . 01 Material submitted: . BIOPSY DISTAL ESOPHAGUS . 01 Clinical history: . None provided . 02 Diagnosis: Biopsy, distal esophagus: - Benign gastric / columnar type mucosa with moderate nonspecific acute and chronic inflammation, negative for goblet cells / diagnostic Marx's metaplasia, granulomas and dysplasia. . (JUDITH:mml; 09/20/2017) [facility]/09/20/2017 . 02 Electronically signed: . Charlie Murguia MD, Pathologist NPI- [id number] . 01 Gross description: . Received in formalin labeled "Santamaria, Yoli, biopsy distal esophagus," is a single segment of marcos soft tissue measuring 0.4 cm in maximum dimension. The specimen is entirely submitted in cassette A1. (TSD; 09/18/2017) TOB/TOB . 02 Pathologist provided ICD-10: K20.9 . 02 CPT . 553564 Performed at: [address], [place], [place] [id number] MD Kofi Nix MD Phone: [phone] Performed at: 02 [facility] [address] [address], [place], [place] [id number] MD Charlie Murguia MD Phone: [phone]
== END 2017-09-19 15:00 | disposition home or self-care (01) | DRG 418 ==
LOC: M.ERS 22:17 → M.ORTHSURG 09-15 03:06 → M.TBA-ER 09-15 03:06 → M.ORTHSURG 09-15 04:12
PROVIDERS: Nurse Practitioner Adult Health; Personal Emergency Response Attendant; ADMIT Internal Medicine
PROC: 0FT44ZZ Resection of Gallbladder, Percutaneous Endoscopic Approach (ICD-10-PCS; principal; 2017-09-16)
PROC: 0F944ZX Drainage of Gallbladder, Percutaneous Endoscopic Approach, Diagnostic (ICD-10-PCS; principal; 2017-09-16)
PROC: 0DB58ZX Excision of Esophagus, Via Natural or Artificial Opening Endoscopic, Diagnostic (ICD-10-PCS; 2017-09-18)
DX: K80.00 Calculus of gallbladder with acute cholecystitis without obstruction (principal); K82.1 Hydrops of gallbladder; E44.0 Moderate protein-calorie malnutrition; F41.9 Anxiety disorder, unspecified; G40.909 Epilepsy, unspecified, not intractable, without status epilepticus; F43.10 Post-traumatic stress disorder, unspecified; I49.5 Sick sinus syndrome; L40.50 Arthropathic psoriasis, unspecified; I95.9 Hypotension, unspecified; R00.1 Bradycardia, unspecified; F12.90 Cannabis use, unspecified, uncomplicated; K21.0 Gastro-esophageal reflux disease with esophagitis; K44.9 Diaphragmatic hernia without obstruction or gangrene; R11.0 Nausea; T40.605A Adverse effect of unspecified narcotics, initial encounter; Y92.238 Other place in hospital as the place of occurrence of the external cause; Z85.3 Personal history of malignant neoplasm of breast; Z92.3 Personal history of irradiation; Z98.84 Bariatric surgery status; Z79.899 Other long term (current) drug therapy; Z88.2 Allergy status to sulfonamides; Z88.8 Allergy status to other drugs, medicaments and biological substances; Z87.891 Personal history of nicotine dependence; Z84.89 Family history of other specified conditions

== ENCOUNTER 2018-01-27 20:19 | Emergency (ER) | payer OTHER ==
[~2018-01-27] VITALS: Ht 157.5 cm; Wt 55.3 kg
[~2018-01-27 20:19] MED LIST changes: +HYDROCODONE-AP1 EAC6 PO; +OXYCONTIN10 M1 PO; +PROMS25 WY RECTAL
[2018-01-27] MEDS ORDERED: [UNRECOGNIZED DRUG - OTHER] (20:53)
[2018-01-27] MEDS ORDERED: PROAIR HFA8.5 GM (20:54)
[2018-01-27 21:51] VITALS: BP 105/69
== END 2018-01-27 21:51 | disposition home or self-care (01) ==
LOC: M.ERS 20:19
DX: S50.02XA Contusion of left elbow, initial encounter (principal); Z90.49 Acquired absence of other specified parts of digestive tract; Z88.1 Allergy status to other antibiotic agents; Z88.2 Allergy status to sulfonamides; Z88.6 Allergy status to analgesic agent; Z88.8 Allergy status to other drugs, medicaments and biological substances; W06.XXXA Fall from bed, initial encounter; Y93.89 Activity, other specified; Y92.89 Other specified places as the place of occurrence of the external cause; Y99.8 Other external cause status